=== PATIENT | female | born 1980 | race Caucasian/White ===

== ENCOUNTER 2017-06-24 07:10 | Inpatient (IN) | payer MEDICAID ==
[2017-06-24 09:55] VITALS: BMI 37.4
[2017-06-24] MEDS ORDERED: ceFAZolin 2 GM in Sodium Chloride 0.9% 100 ML IVPB ONE (09:56)
[2017-06-24] MEDS: Lactated Ringer's 1,000 ML IV SCH ×3 (10:30→18:07)
[2017-06-24 11:09] LABS: HEMATOCRIT 37.1 % (34.0-47.0); MEAN CORPUSCULAR HEMOGLOBIN 26.9 pg (27.0-31.0); MEAN CORPUSCULAR HGB CONC 33.6 g/dL (33.0-37.0); RED CELL DISTRIBUTION WIDTH 14.8 % (11.5-14.5); WHITE BLOOD COUNT 9.2 K/uL (4.8-10.8)
--- NOTE | 2017-06-24 12:27 | OBADHP ---
Datetime: 06/24/2017 10:18 Admit Comment, IP Provider: presenting at 38.4 dated by LMP presenting for shceduled repeat CS. Denies ctx, LOF, VB. States +FM. PNC: O pos, RPR NR, HIV, Hep B, neg, rubella immune, GBS unknown (patient refused testing), OBHx: CS x3 (2002,2006,2012) PNC @ [facility], Dr Nelson PE: s1s2 cta BL gravid abdomen cervix closed A/P Initiate C/S protocol cont. FM ancef 2 gm Husnain PGY3 Addendum: I saw and examined patient. Pt consented for repeat C/S. Discussed the R/B/A of repeat C/S with patient. Pt declining BTL. Discussed with patient the risks of surgical complications with further C/S, due to fact that this is patient's 4th C/S. All patient questions answered. Pelvic Type - PN: Adequate Extremities - PN: Normal Abdomen - PN: Normal Back - PN: Normal Breast - PN: Normal Lungs - PN: Normal Heart - PN: Normal Thyroid - PN: Normal Neurologic - PN: Normal HEENT - PN: Normal General - PN: Normal Comments, ACOG Physical Exam: closed Gestation - Est Wks by US: 38.4 IP Chief Complaint: Scheduled Section Dilatation, Provider: closed Genitourinary Exam: Normal DTRs - PN: Normal IP Adm Impression: Term, intrauterine IP Admit Plan: Admit to unit; Initiate Section protocol
[2017-06-24] MEDS ORDERED: Oxytocin 30 units/LR 500ML 30 U/500 ML BAG IV ONE (12:29)
[2017-06-24] MEDS ORDERED: Phenylephrine 10 mg/ml Inj ONE (12:49)
[2017-06-24] MEDS ORDERED: DiphenhydrAMINE 50 mg/ml Inj IVP PRN (13:38)
[2017-06-24] MEDS ORDERED: Oxycodone/Acetaminophen 5/325 mg Tab PO PRN ×2 (13:38)
--- NOTE | 2017-06-24 13:53 | OBDS ---
DELIVERY PERSONNEL Nurse Bleacher Lard Certified: anders Delivery Doctor: Moses Nelson MD Scrub Nurse: Char Saul OBT Sales And Marketing Assistant: Maegan Bailey RN/Bev Milton Anesthesiologist: Halley Thornton MD Slitter Scorer: anders Resident: Hr. Fonseca MATERNAL INFORMATION Delivery Anesthesia: Spinal Maternal Complications: None Provider Comments: Repeat low flap transverse section via Pfannenstiel incision. Surgeon: Leslie Pipe Organ Mechanic: Shabana Viable female with Apgars of 9 and 9 at one and 5 minutes respectively, normal uterus, norm al tubes and ovaries bilaterally. Estimated blood loss 800 mL Fluids 1700 mL lactated Ringer's Urine output 200 mL of clear urine No complications Patient tolerated procedure well LABOR SUMMARY No. Babies in Womb: 1 Attempted: No Labor Anesthesia: None LABOR INFORMATION Reason for Induction: Not Applicable Oxytocin: N/A Group B Beta Strep: Not Done (Annotations: pt refused GBS testing during ) Antibiotics # of Doses: 1 Antibiotics Time of Last Dose: 1222-ancef 2 gms Steroids Given: None Reason Steroids Not Administered: Not Applicable MEMBRANES Membranes Rupture Method: Artificial STAGES OF LABOR Stage 3 hrs: 0 Stage 3 min: 1 CSECTION DELIVERY Primary Indication: Repeat Elective Secondary Indication: Repeat Elective CSection Incidence: Repeat Labor: No Labor Elective: Elective CSection Incision: Lower Uterine Transverse Uterine Closure: Single-layer closure BABY A INFORMATION Infant Delivery Date/Time: 06/24/2017 13:09 Method of Delivery: Born in Route : No : N/A Forceps: N/A Vacuum Extraction: N/A Shoulder Dystocia : No SHOULDER DYSTOCIA BABY A Infant Delivery Date/Time: 06/24/2017 13:09 PLACENTA INFORMATION BABY A Placenta Delivery Time : 06/24/2017 13:10 Placenta Method of Delivery: Manual Removal Placenta Status: Delivered SCORES BABY A Heart Rate 1 min: >100 bpm Resp Effort 1 min: Good Cry Reflex Irritability 1 min: Cough or Sneeze or Pulls Away Muscle Tone 1 min: Active Motion Color 1 min: Body Purvis, Extremities Blue Resuscitation Effort 1 min: Tactile Stimulation SCORE 1 MIN: 9 Heart Rate 5 min: >100 bpm Resp Effort 5 min: Good Cry Reflex Irritability 5 min: Cough or Sneeze or Pulls Away Muscle Tone 5 min: Active Motion Color 5 min: Body Purvis, Extremities Blue Resuscitation Effort 5 min: Tactile Stimulation SCORE 5 MIN: 9 INFORMATION BABY A Gestational Age at Delivery: 39.1 Gestational Status: Term Infant Outcome : Liveborn Infant Condition : Stable Infant Sex: Female IDENTIFICATION/MEDS BABY A ID Band Number: [id number] ID Band Location: Left Leg; Left Arm Vitamin K Given : Not Given Erythromycin Given: Not Given WEIGHT/LENGTH BABY A Birthweight (gms): 3230 Infant Weight (lb): 7 Infant Weight (oz): 2 Length Inches: 20.50 Infant Length cms: 52.1 CORD INFORMATION BABY A No. Cord Vessels: 3 Nuchal Cord : N/A Nuchal Cord Other: na True Knot: na Cord Blood Taken: Yes Suction: Mouth ASSESSMENT BABY A Infant Complications: None Physical Findings at Delivery: Within Normal Limits Physical Findings Other: had scant mec stools Respirations: Appears Normal Teacher Instrumental/ALS Called : No Care By: Transferred To: Nursery
--- NOTE | 2017-06-24 14:38 | OP ---
PROCEDURE DATE: 06/24/2017 PREOPERATIVE DIAGNOSIS: Elective repeat section at 39 weeks' gestational age. POSTOPERATIVE DIAGNOSIS: Elective repeat section at 39 weeks' gestational age. OPERATION PERFORMED: Repeat low-flap transverse section via Pfannenstiel incision. OPERATIVE FINDINGS: Viable infant female with Apgars of 9 and 9 at 1 and 5 minutes respectively, normal uterus, normal tubes, and ovaries bilaterally. SURGEON: Franco Nelson MD SUBCONTRACT ADMINISTRATOR: Jonh Donald DO. Dr. Donald was present from the beginning of the procedure to the end of procedure. Dr. Donald was integral in exposing the surgical love, controlling intraoperative bleeding, removal of intraoperative adhesions, and manual delivery of the infant. TYPE OF ANESTHESIA: Spinal. ANESTHESIA ADMINISTERED BY: Alex Thornton MD IV FLUID INTAKE: 1700 mL of lactated Ringer's. ESTIMATED BLOOD LOSS: 800 mL. URINE OUTPUT: 200 mL of clear urine at the end of procedure. PREOPERATIVE CONSENT: Before operation, discussed with the patient the risks, benefits, alternatives of repeat section. The patient refusing bilateral tubal ligation. I discussed with the patient the potential for surgical complications with further C-sections. Today is the patient's 4th , and I discussed with the patient the risks of surgical complications with future C-sections. The patient declined bilateral tubal ligation. DESCRIPTION OF PROCEDURE: The patient was taken to the operating room, where spinal anesthesia was found to be adequate. The patient was prepped and draped in a normal sterile fashion in the dorsal supine position with a leftward tilt. A Pfannenstiel skin incision was made with scalpel. This was carried down through to the underlying layer of fascia with scalpel. Midline defect was made in fascial layer with a scalpel. The fascial incision was then extended bilaterally sharply with Metzenbaum scissors. The fascial layer was from the underlying rectus muscles both bluntly and sharply with curved Romo scissors. The rectus muscles were at the midline. The peritoneum was then identified, tented up with Toyin clamps x2, entered sharply with Metzenbaum scissors. This peritoneal incision was then extended superiorly and inferiorly with good visualization of the urinary bladder. Bladder blade was inserted into the abdomen. The vesicouterine peritoneum was then identified, tented up with the Toyin clamps x2, entered sharply with Metzenbaum scissors. This peritoneal incision was then extended bilaterally with Metzenbaum scissors. The bladder flap was created digitally. The Ya retractor was placed over the urinary bladder. The uterus was incised with a scalpel. The uterine incision was extended bilaterally bluntly. The 's head was delivered atraumatically. Nose and mouth were suctioned with bulb suctioned. The remainder of the infant was delivered without complication. The cord was clamped and cut. The infant was handed off to waiting pediatricians. The placenta was removed manually. The uterus was cleared of all clots and debris. The uterine incision was repaired with 0 Vicryl in a running, locked fashion. Second layer of the same suture was used to imbricate the first and to obtain excellent hemostasis. Reinspection of the uterine incision proved excellent hemostasis. The abdomen and pelvis were irrigated with a copious amounts of warm normal saline. Reinspection of the uterine incision proved hemostasis. All instruments were removed from the patient. The peritoneal layer was closed with a running stitch of 2-0 chromic. The rectus muscles were reapproximated at the midline with a running stitch of 2-0 chromic. The fascial layer was closed with a running stitch of 0 Vicryl. The subcutaneous tissue was closed with a running stitch of 3-0 plain. The skin was closed with subcutaneous stitch of 3.0 Vicryl. The patient tolerated the procedure well. All sponge, lap count, and needle counts were correct x2. The patient was given 3 g of Ancef just prior to the beginning of the procedure. There were no complications. The patient was taken to recovery room in awake and stable condition. Franco Nelson MD
[2017-06-25] MEDS: Lactated Ringer's 1,000 ML IV SCH (00:56)
[2017-06-25 07:38] LABS: HEMATOCRIT 35.5 % (34.0-47.0); MEAN CELL VOLUME 81.2 fl (81.0-99.0); MEAN CORPUSCULAR HEMOGLOBIN 26.6 pg (27.0-31.0); MEAN CORPUSCULAR HGB CONC 32.8 g/dL (33.0-37.0); WHITE BLOOD COUNT 9.3 K/uL (4.8-10.8)
[2017-06-25] MEDS: Enoxaparin 40 mg Syringe SC SCH (09:34)
--- NOTE | 2017-06-25 10:04 | OBPPN ---
Datetime: 06/25/2017 09:40 PP Pain Prov: Within normal limits PP Nausea Prov: Denies PP Flatus Prov: Yes PP Breasts Prov: Not Done PP Heart Prov: Normal PP Lungs Prov: Normal PP Abdomen/Uterus Prov: Normal PP Lochia Prov: Not Done PP Vulva/Perineum Prov: Not Done PP CVA Tenderness Prov: Normal PP Extremities Prov: Normal PP C/S Incision Prov: Normal PP Impression Prov: Normal progression PP Plan Prov: Continue present management PP Progress Note Prov: Patient doing well pain well controlled denies nausea vomiting Vital signs stable afebrile Uterus firm below the umbilicus Incision clean dry and intact Extremities no Homans Postoperative day #1 Ambulate, regular diet, analgesia as needed, follow-up CBC Discontinue Griffin and discontinue IV fluid Vital Signs Provider PP: Reviewed
--- NOTE | 2017-06-26 08:29 | OBPPN ---
Datetime: 06/26/2017 08:24 PP Pain Prov: Within normal limits PP Nausea Prov: Denies PP Flatus Prov: Yes PP BM Prov: No PP Abdomen/Uterus Prov: Normal PP Lochia Prov: Normal PP Extremities Prov: Normal PP C/S Incision Prov: Normal PP Progress Prov: Not Applicable PP Comments Phys Exam Prov: Incision intact w/ steri strips PP Impression Prov: Normal progression PP Plan Prov: Continue present management PP Progress Note Prov: POD 2 s/p Repeat c/s, doing well, bottle feeding Continue current management Vital Signs Provider PP: Reviewed; Within Normal Limits
[2017-06-26] MEDS: Enoxaparin 40 mg Syringe SC SCH (08:47)
--- NOTE | 2017-06-27 09:59 | OBPPN ---
Datetime: 06/27/2017 09:55 PP Pain Prov: Within normal limits PP Nausea Prov: Denies PP Flatus Prov: Yes PP BM Prov: Yes PP Breasts Prov: Normal PP Heart Prov: Normal PP Lungs Prov: Normal PP Abdomen/Uterus Prov: Normal PP Lochia Prov: Normal PP Vulva/Perineum Prov: Normal PP CVA Tenderness Prov: Normal PP Extremities Prov: Normal PP Impression Prov: Normal progression PP Plan Prov: Discharge PP Progress Note Prov: Postoperative day #3 status post repeat , recovering well Discharge patient home Follow up in 1 week for incision check Discussed with patient postop precautions and incision care IP PP Procedures: None Vital Signs Provider PP: Reviewed; Within Normal Limits Vital Signs Provider Details PP: Incision clean, dry, intact
--- NOTE | 2017-06-27 09:59 | OBDCSUM ---
Datetime: 06/27/2017 09:57 Discharged to, Provider: Home Follow up at, Provider: [facility] Disch Instr Activity: Normal activity Disch Instr Diet: Regular Discharge Instructions, Provider: Routine instructions given Discharge Diagnosis, Provider: Term Delivered Discharge Time: 06/27/2017 09:57 Follow up in weeks, Provider: 1 week Disch Referrals: None Contraception discussed, Prov: Yes
[2017-06-27 18:38] VITALS: BP 112/70; PULSE 69; RESP 20; TEMP 98; O2SAT 99
== END 2017-06-27 13:30 | disposition home or self-care (01) | DRG 371 ==
LOC: H.L&D 10:00 → H.OB/GYN 16:29
PROVIDERS: ADMIT Obstetrics & Gynecology; ATTEND Obstetrics & Gynecology
PROC: 10D00Z1 Extraction of Products of Conception, Low, Open Approach (ICD-10-PCS; principal; 2017-06-24)
PROC: 4A1HXCZ Monitoring of Products of Conception, Cardiac Rate, External Approach (ICD-10-PCS; 2017-06-24)
DX: O34.211 Maternal care for low transverse scar from previous cesarean delivery (principal); N85.8 Other specified noninflammatory disorders of uterus; Z37.0 Single live birth; Z3A.39 39 weeks gestation of pregnancy